=== PATIENT | female | born 1970 | race Caucasian/White ===

== ENCOUNTER 2020-10-21 13:04 | Emergency (ER) | payer BC ==
[~2020-10-21 13:04] MED LIST: BACTROBAN OINT22 GM EXT; FLAGYL500 MG PO; GLUCOPHAGE500 MG PO; IBUPROFEN600 MG PO; LEXAPRO20 MG PO; MICROZIDE12.5 MG PO; PRINIVIL20 MG PO; ZOFRAN4 MG PO
[2020-10-21 14:32] LABS: HEMOGLOBIN 13.6 gm/dl (12.3-15.3); RED BLOOD COUNT 4.67 M/UL (4.00-5.10); WHITE BLOOD COUNT 11.2 K/UL (4.5-11.0)
[2020-10-21 15:09] LABS: BUN/CREATININE RATIO 18 (0-10)
[2020-10-21] MEDS ORDERED: BACTRIM DS TAB1 EACH PO (22:35)
== END 2020-10-21 22:40 | disposition home or self-care (01) ==
LOC: ER1 13:04
PROVIDERS: Physician Assistant
DX: L03.115 Cellulitis of right lower limb (principal); L08.9 Local infection of the skin and subcutaneous tissue, unspecified; E11.9 Type 2 diabetes mellitus without complications; Z90.89 Acquired absence of other organs; Z79.84 Long term (current) use of oral hypoglycemic drugs
CPT/HCPCS: 73630; 80053; 85025; 85652; 86140; 99283